=== PATIENT | female | born 1970 | race Native Hawaiian/Other Pacific Islander ===

== ENCOUNTER 2016-07-24 11:08 | Emergency (ER) | payer OTHER | END 2016-07-24 12:50 | disposition home or self-care (01) | LOC: INF 11:08 → ED 11:08 | DX: T50.905A Adverse effect of unspecified drugs, medicaments and biological substances, initial encounter (principal) | CPT/HCPCS: 94640; 96361; 96365; 96375; 99284; J2550; J2780 ==

== ENCOUNTER 2019-07-12 14:58 | Outpatient (CLI) | payer OTHER | END 2019-07-12 20:42 | disposition home or self-care (01) | LOC: CT 14:58 | DX: F17.200 Nicotine dependence, unspecified, uncomplicated (principal) | CPT/HCPCS: G0297-TC ==

== ENCOUNTER 2021-01-13 12:18 | Outpatient (CLI) | payer OTHER ==
[~2021-01-13] VITALS: Ht 165.1 cm; Wt 112.5 kg
[2021-01-13 11:59] VITALS: BP 127/63; TEMP 98.4
== END 2021-01-13 21:21 | disposition home or self-care (01) ==
LOC: INF 12:18
PROVIDERS: ATTEND Family Medicine
DX: Z23 Encounter for immunization (principal); U07.1 COVID-19
CPT/HCPCS: 96365; M0244